=== PATIENT | male | born 1990 | race Caucasian/White ===

== ENCOUNTER 2018-06-19 05:21 | Emergency (ER) | payer OTHER ==
[~2018-06-19] VITALS: Ht 190.5 cm; Wt 82.8 kg
[2018-06-19 05:25] VITALS: Ht 190.5 cm; Wt 82.8 kg
[2018-06-19 06:14] LABS: CALCIUM 9.2 mg/dL (8.5-10.1); CARBON DIOXIDE 29.6 mmol/L (21-32); CHLORIDE SERUM 102 mmol/L (98-107); CREATININE SERUM 0.7 mg/dL (0.7-1.3); GFR1 > 60 mL/min; GLUCOSE SERUM 107 mg/dL (74-106); POTASSIUM SERUM 3.8 mmol/L (3.5-5.1); SODIUM SERUM 141 mmol/L (136-145)
[2018-06-19 06:18] LABS: BASOPHIL % 0.5 % (0-2); PLATELET COUNT 218 x10^3mcL (130-400); RED CELL DISTRIBUTION WIDTH 13.1 % (11.5-14.5)
[2018-06-19 06:19] LABS: ALBUMIN 4.6 g/dL (3.4-5.0); ALKALINE PHOSPHATASE 43 U/L (46-116); ALT/SGPT 19 U/L (16-63); AST/SGOT 40 U/L (15-37); BILIRUBIN TOTAL 2.63 mg/dL (0.20-1.00); LIPASE 61 IU/L (73-393); TOTAL PROTEIN, SERUM 8.1 g/dL (6.4-8.2)
[2018-06-19 07:51] VITALS: BP 170/94
== END 2018-06-19 07:51 | disposition home or self-care (01) ==
LOC: ED 05:21
DX: R19.7 Diarrhea, unspecified (principal); Q87.40 Marfan syndrome, unspecified
CPT/HCPCS: J0500; J1885; J2270; J2405; J7030